=== PATIENT | male | born 1965 | race Caucasian/White ===

== ENCOUNTER 2018-02-14 13:15 | Emergency (ER) | payer OTHER ==
[~2018-02-14] VITALS: Ht 180.3 cm; Wt 93.0 kg
[2018-02-14] MEDS ORDERED: METFORMIN HCL500 MG (13:28)
[2018-02-14] MEDS ORDERED: HUMALOG100 UNIT/1 (13:29)
== END 2018-02-14 17:49 | disposition home or self-care (01) ==
LOC: ER 13:15
DX: L30.8 Other specified dermatitis (principal); E11.9 Type 2 diabetes mellitus without complications